=== PATIENT | female | born 1990 | race Caucasian/White ===

== ENCOUNTER 2022-06-15 06:15 | Inpatient (IN) | payer OTHER ==
[2022-06-15] MEDS ORDERED: LIDOCAINE 0.5% (PF) 5 MG/ML (50 ML SDV) SQ PRN (07:11)
[2022-06-15] MEDS ORDERED: TRANEXAMIC ACID IN NACL,ISO-OS 1,000 MG in EMPTY BAG 1 BAG IV PRN (07:11)
[2022-06-15] MEDS ORDERED: miSOPROStoL 200 MCG TAB PO PRN (07:11)
[2022-06-15] MEDS ORDERED: METHYLERGONOVINE 0.2 MG/ML 1 ML AMP IM PRN (07:11)
[2022-06-15] MEDS ORDERED: TERBUTALINE 1 MG/ML VIAL SQ PRN (07:11)
[2022-06-15] MEDS ORDERED: CARBOPROST TROMETHAMINE 250 MCG/ML 1 ML AMP IM PRN (07:11)
[2022-06-15] MEDS ORDERED: OXYTOCIN 10 UNIT/ML 1 ML VIAL IM PRN (07:11)
[2022-06-15] MEDS ORDERED: OXYTOCIN 30 UNITS/500 ML NS 30 UNIT in SALINE 1 500ML.BAG IV SCH (07:15)
[2022-06-15 07:28] LABS: Basophils # (A) 0.1 k/uL (0-0.2); Basophils % (A) 1 %; Eosinophils # (A) 0.1 k/uL (0-0.7); Eosinophils % (A) 1 %; HCT 37.1 % (34.0-46.0); Lymphocytes # (A) 1.7 k/uL (1.0-4.8); Lymphocytes % (A) 17 %; MCH 30.7 pg (25.0-35.0); MCHC 34.9 g/dL (31.0-37.0); Monocytes # (A) 0.5 k/uL (0-1.0); Monocytes % (A) 5 %; Neutrophils # (A) 7.1 k/uL (1.3-7.7); Neutrophils % (A) 74 %; Platelet Count 248 k/uL (150-450); RBC 4.22 m/uL (3.80-5.40); RDW 13.1 % (11.5-15.5); WBC 9.6 k/uL (3.8-10.6)
--- NOTE | 2022-06-15 08:43 | P.HPOB ---
History of Present Illness H&P Date: 06/15/22 Chief Complaint: Elective IOL Ms. Walker is a 32 year old at 39 weeks and 3 days with EDC by LMP c/w 6 weeks US who presents for elective IOL. has been complicated by a history of depression that is stable on Zoloft. Of note, the fetus is suspected to by large for gestational age in the 96%ile at 34 weeks and 4 days (estimated 6#13oz). Maternal laboratory data: blood type O positive, antibody negative, rubella immune, VDRL non-reactive, HBsAg negative, HIV negative, gonorrhea negative, chlamydia negative, 1 hr GTT 130, GBS negative. Past Medical History Past Medical History: No Reported History History of Any Multi-Drug Resistant Organisms: None Reported Past Surgical History: Cholecystectomy Past Anesthesia/Blood Transfusion Reactions: No Reported Reaction Past Psychological History: Anxiety, Depression Smoking Status: Never smoker - Past Family History Father Family Medical History: Hypertension Medications and Allergies Allergies Allergy/AdvReac Type Severity Reaction Status Date / Time amoxicillin Allergy Rash/Hives Verified 06/15/22 06:24 Latex, Natural Rubber Allergy Rash/Hives Verified 06/15/22 06:24 Sulfa (Sulfonamide Allergy Rash/Hives Verified 06/15/22 06:24 Antibiotics) Exam Vital Signs Temp Pulse Resp BP 06/15/22 06:17 97.5 F L 90 16 134/92 Intake and Output 06/14/22 06/15/22 06/15/22 22:59 06:59 14:59 Other: Weight 101.151 kg Focused physical exam is performed. This is a healthy-appearing in no apparent distress. Cervical exam is closed, soft, 0% effaced, -3 station. Cooks catheter is placed in the cervix with 60cc of normal saline in each balloon. Reactive and reassuring heart tracing noted. Results Result Diagrams: 06/15/22 07:10 Assessment and Plan Assessment: 32 year old at 39 weeks and 3 days with suspected LGA fetus presents for eIOL Plan: - s/p cooks catheter, will maintain for 6-12hours - can eat light snacks this morning with cooks in place, after NPO - mIVF - low dose oxytocin max of 6 until cooks catheter removed, then up per protocol Time with Patient: Less than 30 (15 minutes)
[2022-06-15] MEDS: LACTATED RINGERS 1,000 ML IV SCH ×3 (08:52→20:05)
[2022-06-15] MEDS: BUTORPHANOL 1 MG/ML 1 ML VIAL IV PRN ×2 (10:31→12:47)
[2022-06-15] MEDS ORDERED: SODIUM CHLORIDE 0.9% 100 ML BAG ONE (21:33)
[2022-06-15] MEDS ORDERED: fentaNYL (PF) 50 MCG/ML 5 ML AMP ONE (21:33)
[2022-06-15] MEDS ORDERED: ROPIVACAINE 5 MG/ML 20 ML AMPULE ONE (21:33)
[2022-06-16] MEDS ORDERED: CITRIC ACID-SODIUM CITRATE 15 ML CUP PO ONE (02:56)
[2022-06-16] MEDS ORDERED: LIDOCAINE HCL/PF 20 MG/ML 10 ML AMP ONE (03:24)
[2022-06-16] MEDS ORDERED: MORPHINE SULFATE (PF) 0.3 MG/0.3 ML SYR ONE (03:24)
[2022-06-16] MEDS ORDERED: ONDANSETRON 4 MG/2 ML VIAL ONE (03:24)
[2022-06-16] MEDS ORDERED: OXYTOCIN 30 UNITS/500 ML NS BAG IV ONE (03:24)
[2022-06-16] MEDS ORDERED: KETOROLAC 15 MG/ML 1 ML VIAL ONE (03:24)
[2022-06-16] MEDS ORDERED: LANOLIN CREAM 5 GM TUBE TOPICAL PRN (04:28)
[2022-06-16] MEDS ORDERED: SIMETHICONE 80 MG CHEWABLE PO PRN (04:28)
[2022-06-16] MEDS ORDERED: diphenhydrAMINE 50 MG/ML 1 ML VIAL IVP PRN ×2 (04:28)
[2022-06-16] MEDS ORDERED: ZOLPIDEM 5 MG TAB PO PRN (04:28)
[2022-06-16] MEDS ORDERED: diphenhydrAMINE 50 MG CAP PO PRN (04:28)
[2022-06-16] MEDS ORDERED: NALOXONE 0.4 MG/ML 1 ML VIAL IV PRN (04:28)
[2022-06-16] MEDS ORDERED: ONDANSETRON 4 MG/2 ML VIAL IVP PRN (04:28)
[2022-06-16] MEDS ORDERED: METOCLOPRAMIDE 5 MG/ML 2 ML VIAL IVP PRN (04:28)
[2022-06-16] MEDS ORDERED: diphenhydrAMINE 25 MG CAP PO PRN (04:28)
[2022-06-16] MEDS ORDERED: OXYTOCIN 30 UNITS/500 ML NS 30 UNIT in SALINE 1 500ML.BAG IV SCH (04:30)
--- NOTE | 2022-06-16 04:37 | P.OP ---
Date of Procedure: 06/16/22 Preoperative Diagnosis: 1. Intrauterine at 39 weeks and 4 days 2. Suspected large for gestational age fetus, measuring in the 96%ile 3. Failure to progress Postoperative Diagnosis: Same Procedure(s) Performed: Primary Lower Transverse Section Implants: None Anesthesia: epidural Surgeon: Amalia Dodson Post Production Assistant #1: Flaquita Barron Estimated Blood Loss (ml): 690 IV fluids (ml): 1,100 Urine output (ml): 950 Pathology: none sent Condition: stable Disposition: floor Indications for Procedure: This is a 32 year old at 39 weeks and 4 days who presented to labor and delivery yesterday morning for elective induction of labor. Cooks catheter was placed and low dose oxytocin was started. When the cooks catheter was removed, the patient was 5/70/-3. Oxytocin was now increased per protocol and the patient made change to 6/80/-2. AROM was undertaken for thick meconium stained fluid. The patient received an epidural, per her request. She remained 6cm dilated for the next 7.5 hours despite adequate contractions. section was recommended for maternal and well being. The risks of bleeding, infection, and damage to surrounding structures such as bladder/bowel/ureters were discussed with the patient. The patient understands these risks and desires to proceed with section. Operative Findings: Viable male , apgars 8/9, weight 8# 9 ounces, occiput anterior presentation with moderate caput noted. Colorless amniotic fluid. Small right-sided 2cm subserosal fibroid on the posterior uterine wall. Grossly normal fallopian tubes and ovaries bilaterally. Description of Procedure: The patient was taken to the operating room where spinal anesthesia was found to be adequate. 2 grams of Ancef were given for infection prophylaxis. She was prepared and draped in the dorsal supine position with a leftward tilt. A Pfannenstiel skin incision was made with the scalpel. The incision was carried down to the fascia. The fascia was incised and extended laterally with Somers scissors. The superior aspect of the fascia was grasped with Zach clamps. The underlying rectus muscle was dissected off bluntly. In a similar fashion, the inferior aspect of the fascia was elevated with Zach clamps and the rectus muscle and pyramidalis were dissected off bluntly and with Somers scissors. Excellent hemostasis was achieved with the bovie. The rectus muscle was in the midline down to the level of the pubic symphysis. Pre- peritoneal fatty tissue was bluntly dissected to expose the peritoneum. The peritoneum was found to be free of adherent bowel and entered sharply with [place] scissors. The peritoneal incision was extended superiorly and inferiorly to the bladder reflection with good visualization of the bladder. The bladder blade was inserted and vesicouterine peritoneum was identified. Intraabdominal survey revealed scant, clear peritoneal fluid and the thinned-out lower uterine segment. The bladder blade was repositioned to keep the bladder out of the operative field. The lower uterine segment was incised with a scalpel. The uterine incision was extended bluntly with lateral and upward traction. The fetus was in occiput anterior position. The head was elevated out of the pelvis with special attention paid to avoid using the uterine incision as a fulcrum. Gentle fundal pressure was applied once the head was brought into the incision. The was delivered with no difficulty. The mouth and nose were suctioned with a bulb. The cord was clamped and cut. The was handed off to the manager occupational. IV oxytocin was initiated to facilitate uterine contractions. The placenta was delivered intact with manual massage of uterine fundus. The uterus was then exteriorized and the inside of the uterus was gently wiped with a lap sponge to assure complete removal of placental membranes. The uterine incision was closed with a 0-Polysorb suture in a running locked fashion. A second imbricating layer was used with 0-Polysorb. Finally, a few [id number] sutures with 0-Polysorb were placed at the right corner of the incision which had a small extension. The ovaries and tubes were found to be normal. The uterus, tubes, and ovaries were then gently returned to the abdominal cavity. The blood clots and fluid were wiped out of the abdomen and pelvis with moist laparotomy sponges. The uterine incision was reinspected and excellent hemostasis was noted.The fascial layer was closed with a 0-Vicryl suture. The subcutaneous tissue was reapproximated with 2-0 Plain Gut. The skin was closed with 4-0 Monocryl in a subcuticular fashion. The patient tolerated the procedure well. All the counts were correct times two. The patient was taken to the recovery room in a stable condition.
[2022-06-16] MEDS: LACTATED RINGERS 1,000 ML IV SCH ×5 (06:07→22:11)
[2022-06-16] MEDS: SENNOSIDES-DOCUSATE SODIUM 1 EACH TAB PO SCH ×2 (09:37→21:13)
[2022-06-16] MEDS: ACETAMINOPHEN TAB 500 MG TAB PO SCH ×3 (09:37→21:13)
[2022-06-16] MEDS: IBUPROFEN 600 MG TAB PO SCH ×3 (10:33→21:13)
[2022-06-16] MEDS ORDERED: KETOROLAC 15 MG/ML 1 ML VIAL IVP SCH (12:00)
[2022-06-17] MEDS: ACETAMINOPHEN TAB 500 MG TAB PO SCH ×4 (00:42→18:24)
[2022-06-17] MEDS: IBUPROFEN 600 MG TAB PO SCH ×4 (05:24→21:23)
--- NOTE | 2022-06-17 05:30 | P.PN ---
Progress Note - Text Progress Note Date: 06/17/22 POD 1 spinal duramorph with c section. doing well, legs are back to normal, able to ambulate and has been able to micturate. No mental changes. pain is controlled. minimal pruritus.
[2022-06-17 08:18] LABS: Basophils % (A) 0 %; Eosinophils # (A) 0.1 k/uL (0-0.7); Eosinophils % (A) 1 %; HCT 30.7 % (34.0-46.0); HGB 10.6 gm/dL (11.4-16.0); Lymphocytes # (A) 1.3 k/uL (1.0-4.8); Lymphocytes % (A) 11 %; MCH 31.5 pg (25.0-35.0); MCHC 34.6 g/dL (31.0-37.0); MCV 91.1 fL (80.0-100.0); Mean Platelet Volume 6.9; Monocytes # (A) 0.4 k/uL (0-1.0); Monocytes % (A) 4 %; Neutrophils # (A) 10.2 k/uL (1.3-7.7); Neutrophils % (A) 84 %; Platelet Count 211 k/uL (150-450); RBC 3.37 m/uL (3.80-5.40); RDW 13.3 % (11.5-15.5); WBC 12.1 k/uL (3.8-10.6)
[2022-06-17] MEDS: SENNOSIDES-DOCUSATE SODIUM 1 EACH TAB PO SCH ×2 (09:31→19:40)
[2022-06-18] MEDS: ACETAMINOPHEN TAB 500 MG TAB PO SCH ×2 (00:42→07:57)
[2022-06-18] MEDS: IBUPROFEN 600 MG TAB PO SCH (06:04)
[2022-06-18 07:56] VITALS: BP 132/79; PULSE 82; RESP 18; TEMP 98.6
[2022-06-18] MEDS: SENNOSIDES-DOCUSATE SODIUM 1 EACH TAB PO SCH (08:22)
--- NOTE | 2022-06-18 08:37 | P.PNOBGPC ---
Subjective - Subjective Principal diagnosis: s/p primary section Interval history: The patient is doing well this morning and had no acute events overnight. She has no complaints this morning. She reports minimal lochia, passing flatus, voiding without difficulty, ambulating, and eating/drinking without nausea or vomiting. She is having some difficulty with but has worked with and is using nipple artis which have improved her feeding sessions. She denies chest pain, shortness of breathing, fevers, or chills overnight. She denies pain or swelling in the legs. Patient reports: Reports appetite normal, Reports voiding normally, Reports pain well controlled, Reports ambulating normally [place]: doing well Objective - Vital Signs Latest vital signs: Vital Signs Temp Pulse Resp BP Pulse Ox 06/18/22 07:52 98.6 F 82 18 132/79 96 06/18/22 04:00 98.2 F 79 16 125/75 94 L 06/18/22 00:00 98.0 F 79 16 127/75 95 06/17/22 20:00 98.2 F 87 16 118/73 95 06/17/22 15:36 98.5 F 91 16 128/75 06/17/22 09:30 98.5 F 108 H 16 123/84 97 - Exam Extremities: Present: normal Abdomen: Present: normal appearance, soft Incision: Present: normal, dry, intact Uterus: Present: normal, firm Assessment and Plan Assessment: 32 year old POD#2 s/p LTCS Plan: Patient meeting all postoperative and milestones appropriately and desires discharge home today.
--- NOTE | 2022-06-18 08:44 | P.DS ---
Providers Date of admission: 06/15/22 06:15 Expected date of discharge: 06/18/22 Attending physician: Amalia Dodson MD Primary care physician: Stated None Hospital Course: 32 year old POD#2 s/p 1LTCS 2/2 failure to progress during an elective induction of labor. She met all postoperative and milestones appropriately. She had some difficulty with but this has improved after meeting with . She desires discharge home today. Infant will be circumcised today. We discussed appropriate care for her incision. We discussed a lifting restriction no heavier than 15 pounds for 6 weeks. She should call the office if she has any heavy bleeding, foul smelling vaginal discharge, redness/pain/drainage from the incision, breast concerns, or any other questions. Recommend abstinence for 6 weeks. She will return to the clinic in 2 weeks. Assessment: 32 year old POD#2 s/p 1LTCS Patient Condition at Discharge: Good Plan - Discharge Summary Discharge Rx Participant: No New Discharge Prescriptions: New Ibuprofen [Motrin] 600 mg PO Q6H PRN #30 tab PRN Reason: Pain Ibuprofen [Motrin] 600 mg PO Q6HR PRN #30 tab PRN Reason: Mild Pain (Scale 1 To 3) Acetaminophen Tab [Tylenol] 650 mg PO Q6H PRN #30 tab PRN Reason: Mild Pain (Scale 1 To 3) Acetaminophen Tab [Tylenol] 1,000 mg PO Q6H PRN #30 tab PRN Reason: Pain Discharge Medication List Acetaminophen Tab [Tylenol] 1,000 mg PO Q6H PRN #30 tab 06/18/22 [Rx] Acetaminophen Tab [Tylenol] 650 mg PO Q6H PRN #30 tab 06/18/22 [Rx] Ibuprofen [Motrin] 600 mg PO Q6H PRN #30 tab 06/18/22 [Rx] Ibuprofen [Motrin] 600 mg PO Q6HR PRN #30 tab 06/18/22 [Rx] Follow up Appointment(s)/Referral(s): Amalia Dodson MD [STAFF PHYSICIAN] - 2 Weeks (Incision check) Patient Instructions/Handouts: Circumcision of Your Baby (DC), Caring for Your Baby (DC), Depression (DC), Perineal Care (DC), Bleeding (DC), (DC), Your Baby (DC), and Nipple Soreness (DC), How to Increase Your Milk Supply (DC), How to Tell if Your Baby is Getting Enough Breast Milk (DC) Activity/Diet/Wound Care/Special Instructions: No lifting heavier that 15 pounds for 6 weeks. Pelvic rest for 6 weeks. Discharge Disposition: HOME SELF-CARE
== END 2022-06-18 12:30 | disposition home or self-care (01) | DRG 788 ==
LOC: 4FBP 06:15
PROVIDERS: ADMIT Obstetrics & Gynecology; ATTEND Obstetrics & Gynecology
PROC: 3E033VJ Introduction of Other Hormone into Peripheral Vein, Percutaneous Approach (ICD-10-PCS; 2022-06-15)
PROC: 3E0DXGC Introduction of Other Therapeutic Substance into Mouth and Pharynx, External Approach (ICD-10-PCS; 2022-06-15)
PROC: 0U7C7ZZ Dilation of Cervix, Via Natural or Artificial Opening (ICD-10-PCS; 2022-06-15)
PROC: 10907ZC Drainage of Amniotic Fluid, Therapeutic from Products of Conception, Via Natural or Artificial Opening (ICD-10-PCS; 2022-06-16)
PROC: 10D00Z1 Extraction of Products of Conception, Low, Open Approach (ICD-10-PCS; principal; 2022-06-16 03:30)
DX: O36.63X0 Maternal care for excessive fetal growth, third trimester, not applicable or unspecified (principal); O63.0 Prolonged first stage (of labor); D25.2 Subserosal leiomyoma of uterus; O34.13 Maternal care for benign tumor of corpus uteri, third trimester; O77.0 Labor and delivery complicated by meconium in amniotic fluid; Z37.0 Single live birth; Z3A.39 39 weeks gestation of pregnancy; O99.73 Diseases of the skin and subcutaneous tissue complicating the puerperium; L29.9 Pruritus, unspecified; Z91.040 Latex allergy status; Z88.2 Allergy status to sulfonamides; Z88.0 Allergy status to penicillin
CPT/HCPCS: 85025; 86850; 86900; 86901